=== PATIENT | female | born 1995 | race Two or more races ===

== ENCOUNTER 2022-12-16 03:40 | Emergency (ER) | payer MEDICAID, OTHER, SELFPAY ==
[2022-12-16 03:52] VITALS: BP 131/71; PULSE 93; RESP 20; TEMP 36.3; O2SAT 97; BMI 31.0
--- NOTE | 2022-12-16 04:26 | PC.NURSE ---
pt c/o having L ear pain as of four days ago that has worsened over time, states pain goes to area surrounding ear and feels like filled with fluid and pulsating pt states that pain has become intolerable guarding observed, pt restless aox4
--- NOTE | 2022-12-16 05:27 | ED.EAR ---
HPI - Ear Problem General Chief complaint: Ear Problems Stated complaint: left ear pain Time Seen by Provider: 12/16/22 04:23 Source: patient Mode of arrival: ambulatory Limitations: no limitations History of Present Illness HPI Narrative: Patient complaining of pain in left ear for last 4 days feels throbbing pain little congested no fever no chills Related Data Previous Rx's Medication Instructions Recorded amoxicillin 875 mg-potassium 1 tab PO BID #20 tabs 12/16/22 clavulanate 125 mg tablet carbamide peroxide 6.5 % ear drops 5 drp otic (ear) left DAILY 4 days 12/16/22 (Debrox) #15 mL ibuprofen 600 mg tablet 600 mg PO Q6H PRN fever or pain 12/16/22 #30 tabs Allergies Allergy/AdvReac Type Severity Reaction Status Date / Time No Known Allergies Allergy Verified 12/16/22 03:52 Review of Systems Review of Systems: Yes all other systems are reviewed and are negative PMFSH Social History Social History Smoked in Last 30 Days: No Use of substances other than those prescribed or required for medical reasons: No Advance Directives: No Advance Directives Information Provided: Yes Patient : No Physical Exam Vital Signs: Vital Signs: Last Vital Signs Temp 97.3 F 12/16/22 03:52 Pulse 93 12/16/22 03:52 Resp 20 12/16/22 03:52 BP 131/71 12/16/22 03:52 Pulse Ox 97 12/16/22 03:52 O2 Del Method Room Air 12/16/22 03:52 BMI result Body Mass Index 31.0 HEENT: Other: Right tympanic membrane intact and normal in color left unable to see because of excessive cerumen Ears: hearing grossly normal bilaterally, external ears normal, TM normal on the right, mastoids normal and Abnormal EAC present (Left-sided) cerumen impaction Throat: Yes posterior oropharynx normal Medications Administered Discontinued Medications Generic Name Dose Route Start Last Admin Trade Name Freq PRN Reason Stop Dose Admin Oxycodone HCl 5 mg 12/16/22 05:34 12/16/22 05:44 Oxycodone Hcl Immed Release 5 Mg Tablet PO 12/16/22 05:35 5 mg ONCE ONE Administration Procedures Ear Wax Removal Left Ear: Cerumenolytic Used: other (Water jet) Results: Re-examined: some cerumen remains Ear Canal Exam: bleeding Noted (Very small amount) Patient Tolerated Procedure: well Complications: no problems and bleeding Technique: ear canal irrigated and ear canal curetted Discharge Plan Discharge Clinical Impression: Otitis media, Cerumen impaction Patient Disposition: Home, Self-Care Instructions: Ear Infection (ED) Additional Instructions: Use ear drops as prescribed for wax in her left ear Antibiotic as prescribed for possible ear infection Ibuprofen for pain Prescriptions: New ibuprofen 600 mg tablet 600 mg PO Q6H PRN (Reason: fever or pain) Qty: 30 0RF amoxicillin-pot clavulanate 875-125 mg tablet 1 tab PO BID Qty: 20 0RF Debrox 6.5 % drops 5 drp otic (ear) left DAILY 4 Days Qty: 15 0RF
[2022-12-16] MEDS: oxyCODONE HCl Immed Release 5 MG TABLET PO (05:44)
--- NOTE | 2022-12-16 05:44 | PC.NURSE ---
administered 5 mg oxycodone PO for L ear pain per MAR
--- NOTE | 2022-12-16 06:49 | PC.NURSE ---
Discharge instructions given and explained to pt No apparent distress ambulates safely independently aox4
== END 2022-12-16 06:48 | disposition home or self-care (01) ==
PROVIDERS: Emergency Provider Internal Medicine
DX: H92.02 Otalgia, left ear (principal); H61.22 Impacted cerumen, left ear; Z79.899 Other long term (current) drug therapy
CPT/HCPCS: 99283; 99284